=== PATIENT | female | born 1995 | race Caucasian/White ===

== ENCOUNTER 2021-08-17 16:51 | Emergency (ER) | payer OTHER ==
[2021-08-17 17:46] LABS: HEMOGLOBIN 14.1 gm/dl (12.3-15.3); RED BLOOD COUNT 4.88 M/UL (4.00-5.10); WHITE BLOOD COUNT 7.6 K/UL (4.5-11.0)
[2021-08-17 18:16] LABS: BUN/CREATININE RATIO 10 (0-10)
[2021-08-17] MEDS ORDERED: ENDOCET 5-3251 EACH PO (21:31)
[2021-08-17] MEDS ORDERED: MACROBID 100 M100 MG PO (21:47)
== END 2021-08-17 22:18 | disposition home or self-care (01) ==
LOC: ER1 16:51
PROVIDERS: Emergency Medicine
DX: N93.9 Abnormal uterine and vaginal bleeding, unspecified (principal); Z88.2 Allergy status to sulfonamides; Z88.0 Allergy status to penicillin; Z88.1 Allergy status to other antibiotic agents
CPT/HCPCS: 80053; 81001; 84703; 85025; 96374; 96375; 99284; J1170; J2270; J2405; Q9967

== ENCOUNTER 2021-08-19 07:33 | Observation (INO) | payer OTHER ==
[~2021-08-19] VITALS: Ht 154.9 cm; Wt 118.8 kg
[~2021-08-19 07:33] MED LIST: ENDOCET 5-3251 EACH PO; MACROBID 100 M100 MG PO
[2021-08-19 08:17] LABS: HEMOGLOBIN 13.8 gm/dl (12.3-15.3); RED BLOOD COUNT 4.82 M/UL (4.00-5.10); WHITE BLOOD COUNT 6.3 K/UL (4.5-11.0)
[2021-08-19 08:36] LABS: BUN/CREATININE RATIO 16 (0-10)
[2021-08-19] MEDS ORDERED: PERCOCET 5-3251 EACH PO (11:51)
[2021-08-19] MEDS ORDERED: NAPROXEN500 MG PO (11:52)
[2021-08-19] MEDS ORDERED: LEXAPRO10 MG PO (11:52)
[2021-08-19] MEDS ORDERED: QUETIAPINE FUMA25 MG PO (11:53)
[2021-08-19] MEDS ORDERED: HYDROXYZINE HCL25 MG PO (11:53)
[2021-08-19] MEDS ORDERED: PROAIR HFA8.5 GM INH (11:55)
[2021-08-19] MEDS ORDERED: ADDERALL 10 MG10 MG PO (11:55)
[2021-08-20 06:01] LABS: RED BLOOD COUNT 4.52 M/UL (4.00-5.10); WHITE BLOOD COUNT 7.3 K/UL (4.5-11.0)
[2021-08-20 06:22] LABS: BUN/CREATININE RATIO 10 (0-10)
[2021-08-20] MEDS ORDERED: PHENERGAN 12.12.5 M1 PO (13:06)
[2021-08-20] MEDS ORDERED: LEVOFLOXACIN500 MG PO (13:06)
== END 2021-08-20 18:30 | disposition home or self-care (01) ==
LOC: ER1 07:33 → CDU 11:26 → MED SURG 4 11:26 → CDU 11:26 → MED SURG 4 14:26
PROVIDERS: Nurse Practitioner; Physician Assistant Medical; ADMIT Internal Medicine
DX: N30.00 Acute cystitis without hematuria (principal); R11.2 Nausea with vomiting, unspecified; D25.9 Leiomyoma of uterus, unspecified; Z20.822 Contact with and (suspected) exposure to COVID-19; Z88.1 Allergy status to other antibiotic agents; Z88.2 Allergy status to sulfonamides; Z88.0 Allergy status to penicillin; Z91.018 Allergy to other foods; Z79.899 Other long term (current) drug therapy
CPT/HCPCS: 0240U; 36415; 80048; 80053; 81001; 83605; 83735; 84703; 85025; 85027; 87040; 96374; 96375; 99284; G0378; J1956; J2405; J7030